=== PATIENT | female | born 1965 | race Hispanic/Latino ===

== ENCOUNTER 2019-02-14 10:19 | Emergency (ER) | payer MEDICARE, OTHER ==
[~2019-02-14] VITALS: Ht 157.5 cm; Wt 60.0 kg
[2019-02-14] MEDS ORDERED: SIROLIMUS1 MG PO (12:37)
[2019-02-14] MEDS ORDERED: TACROLIMUS1 MG PO (12:38)
[2019-02-14] MEDS ORDERED: NIFEDIPINE ER30 MG PO (12:39)
[2019-02-14] MEDS ORDERED: LABETALOL200 MG PO (12:39)
[2019-02-14] MEDS ORDERED: METHYLPRED4 M2 PO (12:39)
[2019-02-14] MEDS ORDERED: PERCOCET 5/325M1 TAB PO (13:55)
[2019-02-14 14:53] VITALS: BP 145/64
== END 2019-02-14 15:57 | disposition home or self-care (01) ==
LOC: ED 10:19
DX: S82.041A Displaced comminuted fracture of right patella, initial encounter for closed fracture (principal); I10 Essential (primary) hypertension; W01.0XXA Fall on same level from slipping, tripping and stumbling without subsequent striking against object, initial encounter; Y92.838 Other recreation area as the place of occurrence of the external cause; Z94.83 Pancreas transplant status; Z94.0 Kidney transplant status
CPT/HCPCS: L1830